=== PATIENT | male | born 1990 | race Hispanic/Latino ===

== ENCOUNTER 2020-07-12 22:58 | Emergency (ER) | payer OTHER ==
[~2020-07-12] VITALS: Ht 162.6 cm; Wt 80.9 kg
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
[2020-07-13 00:53] VITALS: BP 122/83
== END 2020-07-13 00:54 | disposition home or self-care (01) ==
LOC: M ED 22:58
DX: S13.4XXA Sprain of ligaments of cervical spine, initial encounter (principal); S40.011A Contusion of right shoulder, initial encounter; Y92.9 Unspecified place or not applicable; Y93.9 Activity, unspecified; Y99.1 Military activity; W17.89XA Other fall from one level to another, initial encounter; Z91.013 Allergy to seafood; Z91.018 Allergy to other foods; Z91.02 Food additives allergy status

== ENCOUNTER 2021-12-29 16:22 | Emergency (ER) | payer OTHER ==
[~2021-12-29] VITALS: Ht 162.6 cm; Wt 85.5 kg
[2021-12-29] MEDS ORDERED: PERC5TAB12 PO (21:13)
[2021-12-29] MEDS ORDERED: PERCOCET 5MG/325MG TAB PO ONE (21:20)
[2021-12-29 21:35] VITALS: BP 113/64
== END 2021-12-29 22:06 | disposition home or self-care (01) ==
LOC: M ED 16:22
DX: S90.32XA Contusion of left foot, initial encounter (principal); M87.27 Osteonecrosis due to previous trauma, ankle, foot and toes; W22.8XXA Striking against or struck by other objects, initial encounter; Y92.138 Other place on military base as the place of occurrence of the external cause; Y99.1 Military activity; Z91.018 Allergy to other foods

== ENCOUNTER 2022-05-20 10:28 | Emergency (ER) | payer OTHER ==
[~2022-05-20] VITALS: Ht 162.6 cm; Wt 85.9 kg
[~2022-05-20 10:28] MED LIST: PERC5TAB12 PO
[2022-05-20] MEDS ORDERED: dexameTHASONE 20MG/5ML VIAL (J1100 PER 1MG) IV ONE (10:55)
[2022-05-20] MEDS ORDERED: FAMOTIDINE 20MG/2ML VIAL IVP ONE (10:55)
[2022-05-20] MEDS ORDERED: NS 500 ML IV ONE (10:55)
[2022-05-20] MEDS ORDERED: BENA25CA4 PO (15:19)
[2022-05-20] MEDS ORDERED: PRED20TA PO (15:19)
[2022-05-20] MEDS ORDERED: PEPC1TAB5 PO (15:20)
[2022-05-20 16:38] VITALS: BP 131/68
== END 2022-05-20 16:52 | disposition home or self-care (01) ==
LOC: M ED 10:28 → EDBD 10:28 → M ED 16:52
DX: R09.89 Other specified symptoms and signs involving the circulatory and respiratory systems (principal); R06.02 Shortness of breath; Z91.018 Allergy to other foods
CPT/HCPCS: 71045; 93041; 94760; 96361; 96374; 96375; 99285; J1100